=== PATIENT | female | born 1945 | race Caucasian/White ===

== ENCOUNTER 2024-08-13 06:41 | Emergency (ER) | payer MEDICARE, OTHER, SELFPAY ==
[2024-08-13 06:44] VITALS: BP 170/83; PULSE 88; RESP 15; TEMP 36.5; O2SAT 100
--- NOTE | 2024-08-13 07:15 | CT_ITS ---
PROCEDURE: CTA CHEST W/WO CONTRAST 08/13/2024 REASON FOR EXAM: AORTIC DISSECTION TECHNIQUE: CTA axial imaging of the chest with intravenous contrast. Multiplanar and multisequence images were obtained. 3D, 3D post processing, 3D reconstructions, Maximum intensity projection (MIPs) Volume rendering and Shaded surface rendering was provided. PATIENT PREPARATION: Per protocol CONTRAST: 100 cc Isovue 370 One or more dose reduction techniques were used (e.g., Automated exposure control, adjustment of the mA and/or kV according to patient size, use of iterative reconstruction technique). RADIATION DOSE SUMMARY: DLP: 218.68 mGycm COMPARISON: None FINDINGS: Hardware: None Lymph nodes: Heart: Coronary artery calcifications are noted. RV/LV Diameter Ratio: 0.8 Thoracic Aorta: The ascending aorta measures 3.1 cm, within normal limits. There is no evidence of aneurysm or dissection. The origin of the great vessels are unremarkable. The descending aorta measures 2.3 cm, within normal limits. Pulmonary Vessels: Main pulmonary artery Hounsfield units = 458. there is no visible pulmonary embolus. Lungs and Airways: Unremarkable Pleura: There is no pneumothorax or effusion Upper Abdomen: Unremarkable Bones: There is no acute bony abnormality CT/CTA Chest W/WO Contrast IMPRESSION: There is no aortic aneurysm or dissection. There is no evidence of pulmonary embolus. Reading Location: [facility]
--- NOTE | 2024-08-13 07:16 | EKG12_ITS ---
Test Reason : CP Blood Pressure : */* mmHG Vent. Rate : 80 BPM Atrial Rate : 80 BPM P-R Int : 122 ms QRS Dur : 82 ms QT Int : 384 ms P-R-T Axes : 52 -3 4 degrees QTcB Int : 442 ms Normal sinus rhythm Normal ECG Confirmed by CECE PERRY, DICK ([id number]), international editorial producer TATYANA RUSSELL ([id number]) on 08/14/2024 1:27:34 PM Referred By: MARIAH Confirmed By: DICK ZHAO MD
[2024-08-13] MEDS: Aspirin 81 MG TAB.CHEW 324 MG PO (07:22)
--- NOTE | 2024-08-13 07:23 | ED.VIS.CHEST ---
HPI History of Present Illness Chief Complaint: Chest Pain Informant: patient Narrative Narrative: 78-year-old female presenting to the emergency room for evaluation of chest pain. Patient states that around midnight she awoke and had a pain in her mid to lower chest. She states she cannot really describe it other than a pain in perhaps indigestion but not burning. She states that she took some gas medication and fell asleep and again around 230 this time it seemed to move lower into the abdomen but also into the chest but then radiated to her back and her low back. She states that he eventually the pain began has become intermittent in nature and lessened. She took a pantoprazole. She states that in May she had a sharp stabbing pain in the right upper quadrant and followed up with primary care as well as gastroenterology. She states she had a CAT scan of her abdomen and she is taking both pantoprazole and famotidine. She states that yesterday she had Swazi for lunch and she had a small pulled meat slider for dinner at a meeting. She wonders if something did not quite agree with her. She did have a small amount of nausea with it but no vomiting. No sweating or shortness of breath. She states that she has a familial history of coronary artery disease and last had a stress test about 5 years ago. She states that she has had both stress and heart catheterizations that have always been negative. She recently moved to the area from [facility] where her doctors are located. [facility] Medical History (Updated 08/13/24 @ 08:[address] Lj Mclain, DO) GERD (gastroesophageal reflux disease) Medical History no medical history Home Medications ?Medication ?Instructions ?Recorded ?Last Taken ?Type calcium 200 mg (as 1 tab PO DAILY 08/13/24 Unknown History citrate)-vitamin D3 6.25 mcg (250 unit) tablet (Citracal-D3 Petites) cholecalciferol (vitamin D3) 25 1,000 unit PO DAILY 08/13/24 Unknown History mcg (1,000 unit) tablet (Vitamin D3) clorazepate dipotassium 7.5 mg 7.5 mg PO DAILY PRN sleep 08/13/24 Unknown History tablet denosumab 60 mg/mL subcutaneous mg subcut .Q6MO 08/13/24 Unknown History syringe (Prolia) famotidine 20 mg tablet (Acid-Pep) 20 mg PO BID 08/13/24 Unknown History fexofenadine-pseudoephedrine ER 1 tab PO Q24H PRN allergy symptoms 08/13/24 Unknown History 180 mg-240 mg tablet,ext.release 24 hr (Candice-D 24 Hour) fluticasone propionate 50 1 spray intranasal DAILY PRN 08/13/24 Unknown History mcg/actuation nasal allergy symptoms spray,suspension (Aller-Haile) melatonin 5 mg capsule 5 mg PO QHS PRN sleep 08/13/24 Unknown History pantoprazole 40 mg tablet,delayed 40 mg PO DAILY 08/13/24 Unknown History release (Protonix) simvastatin 10 mg tablet 10 mg PO DAILY 08/13/24 Unknown History valacyclovir 500 mg tablet 500 mg PO DAILY PRN HERPES 08/13/24 Unknown History Allergy/AdvReac Type Severity Reaction Status Date / Time No Known Allergies Allergy Verified 08/13/24 06:42 Social History Smoking Status: Former smoker ROS ROS ED Constitutional Constitutional ED: Denies chills, fever(s) or weight loss Eyes Eyes: Denies change in vision or diplopia ENT ENT ED: Denies ear pain, rhinorrhea or sore throat Cardiovascular Cardiovascular: Reports as per HPI and chest pain; Denies orthopnea, palpitations or racing heartbeat Respiratory/Chest Respiratory/Chest: Denies cough, dyspnea or orthopnea Gastrointestinal Gastrointestinal: Denies abdominal pain, diarrhea, nausea or vomiting Genitourinary Genitourinary ED: Denies dysuria, hematuria or urinary frequency Musculoskeletal Musculoskeletal: Reports back pain; Denies arthralgias or myalgias Integumentary Denies abscess or rash Neurologic Neurologic: Denies headache(s) or weakness Psychiatric Psychiatric: Denies anxiety, depression, suicidal ideation or suicidal thoughts Endocrine Endocrinology: Denies polydipsia, polyphagia or polyuria Allergic/Immunologic Allergic/Immunologic ED: Denies mouth swelling, tongue swelling or urticaria EXAM Physical Exam Const Vital Signs: 08/13/24 06:44 08/13/24 06:47 08/13/24 07:42 Temperature 97.7 F L Temperature Source Oral Pulse Rate 88 74 Respiratory Rate 15 18 Respiratory Pattern Normal Blood Pressure 170/83 H 145/83 H Blood Pressure Mean 112 103 Pulse Ox 100 97 Oxygen Delivery Method Room Air 08/13/24 08:00 08/13/24 09:00 08/13/24 10:19 Temperature Temperature Source Pulse Rate 83 75 87 Respiratory Rate 17 18 Respiratory Pattern Blood Pressure 134/74 H Blood Pressure Mean 94 Pulse Ox 98 97 Oxygen Delivery Method Positive well nourished and well developed General Appearance ED: well developed HEENT Reports normocephalic, head/scalp atraumatic and moist mucous membranes Eyes PERRL and EOMs intact bilaterally Neck no lymphadenopathy, supple and no JVD Resp normal respiratory effort and clear to auscultation bilaterally Cardio regular rate, regular rhythm and no murmurs GI normal to inspection, nondistended, normoactive bowel sounds and non-tender Palpation: soft Back/Spine no CVA tenderness and normal ROM Extremity normal to inspection General Extremety ED: Negative for edema General Extremity: Negative for edema Neuro oriented x3 and CN's II-XII intact bilaterally Sensorium / Orientation: alert Motor Exam: strength 5/5 throughout Psych mental status grossly normal Mood & Affect: Negative for depressed or tearful Skin no rashes or lesions noted and no wounds MDM MDM MDM Narrative Medical decision making narrative: Differential diagnosis includes but not limited to GERD acute coronary syndrome aortic dissection pulmonary embolism pneumothorax biliary colic White count returns at 6.4 with a hemoglobin 12.6 and platelet count of 173. BMP shows a glucose of 127 normal creatinine. LFTs within normal limits lipase 27 initial troponin is 10. Because the patient was experiencing chest pain rating to the back with symptoms above and below the diaphragm a CTA of the chest was obtained to evaluate for aortic dissection. This was read by radiology reviewed by myself and does not demonstrate or acute dissection obvious pulmonary embolism. Gallbladder did not demonstrate obvious pericholecystic fluid or stones. Second troponin was obtained which was also normal. I discussed the above findings with the patient. She states she is doing much better is no longer having any symptomology and wonders if by taking her Protonix this morning that helped her. She talked to me about her previous gallbladder evaluations. I recommend PCP follow-up and potential HIDA scan if indicated. History & Record Review Discussion w/independent historian: Patient Additional record(s) reviewed:: No prior records Lab Data Attestation: I reviewed the patient's lab results. Labs: Laboratory Results - last 24 hr 08/13/24 08/13/24 07:02 09:03 WBC 6.4 RBC 4.13 L Hgb 12.6 Hct 38.0 MCV 92.0 MCH 30.5 MCHC 33.2 RDW Std Deviation 42.5 RDW Coeff of Pema 12.6 Plt Count 173 MPV 10.4 Immature Gran % (Auto) 0.300 Neut % (Auto) 74.5 H Lymph % (Auto) 18.1 L Refugio % (Auto) 6.4 Eos % (Auto) 0.5 Baso % (Auto) 0.2 Absolute Neuts (auto) 4.8 Absolute Lymphs (auto) 1.16 Nucleated RBC % 0 Sodium 140 Potassium 3.7 Chloride 103 Carbon Dioxide 27.2 Anion Gap 10 BUN 21 H Creatinine 0.70 Est GFR (MDRD) Non-Af 87 BUN/Creatinine Ratio 30.3 H Glucose 127 H Calcium 9.3 Total Bilirubin 0.65 Direct Bilirubin 0.31 H AST 27 ALT 19 Alkaline Phosphatase 45 Troponin T High Sens 10 Troponin T Hi Sens 2 Hr 9 Total Protein 6.7 Albumin 4.3 Globulin 2.4 Lipase 27 Radiography Diagnostic Testing: Clinical Impression(s) from Imaging Studies Chest CTA 08/13/24 07:15 IMPRESSION: There is no aortic aneurysm or dissection. There is no evidence of pulmonary embolus. Reading [facility] Initial EKG: Attestation: I personally reviewed and interpreted this EKG as follows: Comments: Normal sinus rhythm ventricular rate of 80 bpm Discharge Plan Triage Chief Complaint: Chest Pain ED Provider: Lj Mclain Dx/Rx/DC Orders Clinical Impression: Chest pain, Abdominal pain, Back pain Instructions: ED Chest Pain, Noncardiac Prescriptions: No Action pantoprazole [Protonix] 40 mg tablet,delayed release (DR/EC) 40 mg PO DAILY famotidine [Acid-Pep] 20 mg tablet 20 mg PO BID simvastatin 10 mg tablet 10 mg PO DAILY cholecalciferol (vitamin D3) [Vitamin D3] 25 mcg (1,000 unit) tablet 1,000 unit PO DAILY calcium citrate-vitamin D3 [Citracal-D3 Petites] 200 mg-6.25 mcg (250 unit) tablet 1 tab PO DAILY clorazepate dipotassium 7.5 mg tablet 7.5 mg PO DAILY PRN (Reason: sleep) valacyclovir 500 mg tablet 500 mg PO DAILY PRN (Reason: HERPES) fexofenadine-pseudoephedrine [Candice-D 24 Hour] 180-240 mg tablet extended release 24 hr 1 tab PO Q24H PRN (Reason: allergy symptoms) fluticasone propionate [Aller-Haile] 50 mcg/actuation spray,suspension 1 spray intranasal DAILY PRN (Reason: allergy symptoms) Rx Instructions: administer into each nostril melatonin 5 mg capsule 5 mg PO QHS PRN (Reason: sleep) Prolia 60 mg/mL syringe subcut .Q6MO Primary Care Provider: RICO GUARDADO Referrals: NOT,DEFINED [Non-Staff] - Activity Restrictions/Additional Instructions: I would recommend continuing your home Protonix and famotidine. Based on today's testing and did not feel that there was an obvious cardiac etiology to your symptoms. No evidence of blood clot in the lungs or aortic dissection was noted. The gallbladder appeared normal on the CAT scan. If you have recurrent or continued symptoms please return to emergency or follow-up with primary care. You may wish to discuss a HIDA scan with your doctor to further evaluate your gallbladder Print Language: Frisian Disposition Disposition: Home, Self Care Discharge Date/Time: 08/13/24 10:20
[2024-08-13 07:26] LABS: Absolute Lymphocyte Count 1.16 X10^3/uL (0.83-4.51); Absolute Neutrophil Count 4.8 X10^3/uL (2.0-7.7); Basophil# 0.01 X10^3/uL; Basophil% 0.2 % (0-1); Eosinophil# 0.03 X10^3/uL; Eosinophils% 0.5 % (0-5); Hemoglobin 12.6 g/dL (12.0-15.0); Lymphocyte # 1.16 X10^3/ul (0.83-4.51); Lymphocyte % 18.1 % (19-41); Mean Corp Hgb Conc 33.2 g/dL (32-36); Mean Corpuscular Hgb 30.5 pg (27.0-32.0); Mean Platelet Vol. 10.4 fl (6.2-12.0); Monocyte# 0.41 X10^3/uL; Monocyte% 6.4 % (0-10); NRBC Flagged by Analyzer 0 % (0-5); Neutrophil # 4.79 X10^3/uL (2.7-7.7); Neutrophil % 74.5 % (47-70); Platelet Count 173 K/mm3 (150-450); RBC Distribution Width CV 12.6 % (11.6-14.6); RBC Distribution Width SD 42.5 fl (35.1-43.9); Red Blood Count 4.13 M/mm3 (4.2-5.4); White Blood Count 6.4 K/mm3 (4.4-11.0)
[2024-08-13 07:42] VITALS: BP 145/83; PULSE 74; RESP 18; O2SAT 97
[2024-08-13 07:47] LABS: Anion Gap 10 (5-15); BUN 21 mg/dL (4-19); BUN/Creat Ratio 30.3 RATIO (10-20); Calcium,Total 9.3 mg/dL (7.6-11.0); Carbon Dioxide 27.2 mmol/L (21.0-32.0); Chloride 103 mmol/L (98-108); EST Glomerular Filtration Rate 87 (>60); Glucose 127 mg/dL (70-99); Potassium 3.7 mmol/L (3.3-5.1); Sodium Level 140 mmol/L (133-145); Troponin T High Sensitivity 10 ng/L (<=14)
[2024-08-13 08:00] VITALS: PULSE 83
[2024-08-13 08:25] LABS: Lipase 27 U/L (13-75)
[2024-08-13 08:26] LABS: AST(SGOT) 27 U/L (<=31); Alanine Aminotransfer ALT/SGPT 19 U/L (<=34); Albumin, Serum 4.3 g/dL (3.4-4.8); Alkaline Phosphatase 45 U/L (35-104); Bilirubin, Direct 0.31 mg/dL (0.00-0.30); Globulin 2.4 g/dL (2.2-4.2); Protein, Total 6.7 g/dL (5.9-8.4); Total Bilirubin 0.65 mg/dL (0.00-1.30)
[2024-08-13 09:00] VITALS: PULSE 75; RESP 17; O2SAT 98
[2024-08-13 09:31] LABS: Troponin T High Sens 2 HR 9 ng/L (<=14)
[2024-08-13 10:19] VITALS: BP 134/74; PULSE 87; RESP 18; O2SAT 97
== END 2024-08-13 10:20 | disposition home or self-care (01) ==
PROVIDERS: Emergency Provider Emergency Medicine; Visit Provider Emergency Medicine
DX: R07.9 Chest pain, unspecified (principal); R10.9 Unspecified abdominal pain; M54.9 Dorsalgia, unspecified; K21.9 Gastro-esophageal reflux disease without esophagitis; Z87.891 Personal history of nicotine dependence; Z79.899 Other long term (current) drug therapy
CPT/HCPCS: 71275; 80048; 80076; 83690; 84484; 85025; 93005; 99284; Q9967; A4216

== ENCOUNTER 2025-03-27 10:30 | Outpatient (RCR) | payer MEDICARE, OTHER, SELFPAY ==
--- NOTE | 2025-02-12 09:13 | HP.PTEVAL_ITS ---
Patient's Visit Information Visit Information Visit Information: ARLENE ROMANO is a 79 year old F referred to Physical Therapy by MARIA FERNANDA GALLEGOS with a diagnosis of IVDD, Lumbar strain.. Date of Evaluation: 02/12/25 Physical Therapist: Lamonte Cobb, DPT, OCS, CSCS Visit Plan Frequency: 2x /Week Duration: 4-6 Weeks Plan: 2x/week for 3-6 weeks IE HEP trunk rotation 20x, PT 20x, skc 10x and let steroid work over next 5 days with body mechanics instruct today on exiting chair and picking things up. Ho given treat with instruction in home based core strength and body mechanics/lifting with pics and progress to I. Pt on steroid pack through the weekend adn ensure that is working. Inculde band pulls and postural strength Subjective Subjective: Might have lifted something she should not have. Got back pain. Still gets it now and then but comfortable at rest. Fels it getting off a stool or sitting too long. it hurts R LB and down leg and it lingers. Hard to walk when it happens. Happened one time in rest room and has to wait it out. Uses cart when this happens. Sitting helps at that point. Went ot ortho Monday and is on prednisone pack 6 day and then 3 weeks on pain antiinflammtory pill. is on day two. Was geetting pain every couple days to a week. More frequently in the last week or two. 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 Pulld crab grass out of yard and felt it then. Sleep is not a problem. Not employeed. 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 Regular Exercises: none. Walks a lot and feels good with that. Pain R Lumbar and leg: Pain Intensity (Out of 10): 0 Pain Intensity Range: 0 and 8 Comment: Ok at rest mostly. Objective Objective: Walks slowly without pain back to PT I. Trasnfers chair with UE carefully and I. Table transfer I. steps reciprocal with one rail I, no pain today. Lumbar AROM ext central discomfort trasniently, R SB slight pull on R, L SB and flexion are OK. Posture is forward head and scap, flat lumbar lordosis. - slump, - SLR HS min tight at -20 90/90, no pain, - JAQUELIN and RIKKIIR B. Hip and knee adn ankle aROM WFL. sensation LE WNL to gross light touch. reeflexes 2/3 B patella dn achilles strength core 3/5, hip abd and ext 3+, flexion 3+ with core instability, knees 4, ankles 4/5 Balance/Special Test Scores Oswestry Low Back Score: 11 Goals Goal 1:: I appropriate HEP for core strength to limit future problems and body meechanics with pushing and lifting. Goal Time Frame: 4-6 Weeks Goal 2:: Pain in LB 99% b chase and 1/10 at worst. Goal Time Frame: 4-6 Weeks Goal 3:: Lumbar ext and R SB without pain Goal Time Frame: 4-6 Weeks Goal 4:: Push WC up ramp without pain Goal Time Frame: 4-6 Weeks Rehabilitation Potential Physical Therapy Diagnosis: periods of pain limiting comfortablee funciton. Rehabilitation Potential: Good Anticipated Interventions Patient/Client Instruction: Educate patient on: Condition and Plan of Care For the Purpose of:: To decrease pain, To increase ROM, To improve muscle performance and motor function, To increase tolerance to activity/condition/position and To improve ability of physical actions for home/community/work/leisure Therapeutic Exercise to Include: Strength training, Dynamic Lumbar Stabilization and Scapular Strength/Stabilization For the Purpose of:: To decrease pain, To improve nutrient delivery to tissue, To increase tolerance to activity/condition/position and To improve ability of physical actions for home/community/work/leisure Text: Thank you for the opportunity to evaluate your patient. For Medicare and Medicare HMO plans, please review the plan of care and approve it. It will need to be FAXED BACK to us at [phone] for Medicare purposes. For Medicare only, by signing this I certify the plan of care. Please let me know if there are questions or concerns regarding this plan of care. Physician Signature: Date:_
--- NOTE | 2025-03-27 10:40 | HP.PTDCSUM_ITS ---
Discharge Summary D/C summary: It has been my pleasure to treat ARLENE ROMANO referred by MARIA FERNANDA GALLEGOS, with the diagnosis of IVDD, Lumbar strain. for a total of 8 visit(s). Discharge Date: 03/27/25 Please see the following information for a summary of their discharge status. Subjective Subjective: Doing welll and eexercises are still helping. No problem with house hold activities. 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 Walking well today without antalgia. Goals Goal 1:: I appropriate HEP for core strength to limit future problems and body meechanics with pushing and lifting. Goal Progress: Goal Met Goal 2:: Pain in LB 99% b chase and 1/10 at worst. Goal Progress: 90% Goal 3:: Lumbar ext and R SB without pain Goal Progress: just tight Goal 4:: Push WC up ramp without pain Goal Progress: Goal Met, carefully. Plan Plan: d/c to HEP D/C Information d/c sentence: If there are questions or concerns regarding this patient's physical therapy, please feel free to call me at [phone]. Thank you for the referral of this patient. Sincerely, Lamonte Cobb, DPT, OCS, CSCS Balance/Gait/Functional tests Balance/Special Test Scores Oswestry Low Back Score: 7 Improvement % Improvement: 90
== END 2025-03-27 19:00 | disposition home or self-care (01) ==
LOC: PT 10:30
DX: M51.362 Other intervertebral disc degeneration, lumbar region with discogenic back pain and lower extremity pain (principal); M54.16 Radiculopathy, lumbar region; S39.012D Strain of muscle, fascia and tendon of lower back, subsequent encounter
CPT/HCPCS: 97110; 97161; 97164; 97530